=== PATIENT | male | born 1945 | race Caucasian/White ===

== ENCOUNTER 2020-03-19 10:56 | Outpatient (REF) | payer OTHER, SELFPAY ==
[2020-03-19 14:47] LABS: Prostate Specific Antigen 2.99 ng/mL (<0.05-4.0)
== END 2020-03-19 10:57 | disposition home or self-care (01) ==
LOC: HO.10HDL 10:56
PROVIDERS: Visit Provider Urology
DX: N40.1 Benign prostatic hyperplasia with lower urinary tract symptoms (principal)
CPT/HCPCS: 84153

== ENCOUNTER → 2020-04-10 14:58 | Outpatient (BNVA) | payer OTHER, SELFPAY | PROVIDERS: PCP Hospitalist; Referring Provider Hospitalist; Visit Provider Urology | DX: Z76.89 Persons encountering health services in other specified circumstances (principal) ==

== ENCOUNTER 2021-04-10 11:33 | Outpatient (REF) | payer OTHER, SELFPAY ==
[2021-04-10 14:43] LABS: PSA,Total (Free>4and<10) 2.36 ng/mL (0.00-4.00)
== END 2021-04-10 11:34 | disposition home or self-care (01) ==
LOC: HO.10HDL 11:33
PROVIDERS: Visit Provider Urology
DX: R97.20 Elevated prostate specific antigen [PSA] (principal); N40.1 Benign prostatic hyperplasia with lower urinary tract symptoms; N13.8 Other obstructive and reflux uropathy; Z12.5 Encounter for screening for malignant neoplasm of prostate
CPT/HCPCS: 36415; 84153; 87086

== ENCOUNTER → 2021-04-14 13:48 | Outpatient (BNVA) | payer OTHER, SELFPAY | PROVIDERS: PCP Hospitalist; Visit Provider Urology ==

== ENCOUNTER 2022-04-07 09:41 | Outpatient (REF) | payer OTHER, SELFPAY ==
[2022-04-07 11:26] LABS: Prostate Specific Antigen 3.99 ng/mL (<0.05-4.0)
== END 2022-04-07 09:42 | disposition home or self-care (01) ==
LOC: HO.10HDL 09:41
PROVIDERS: Visit Provider Urology
DX: Z12.5 Encounter for screening for malignant neoplasm of prostate (principal); N40.1 Benign prostatic hyperplasia with lower urinary tract symptoms; N13.8 Other obstructive and reflux uropathy
CPT/HCPCS: 36415; 84153

== ENCOUNTER → 2022-04-14 13:17 | Outpatient (BNVA) | payer OTHER, SELFPAY | PROVIDERS: PCP Hospitalist; Visit Provider Urology | DX: N40.1 Benign prostatic hyperplasia with lower urinary tract symptoms (principal); R97.20 Elevated prostate specific antigen [PSA] | CPT/HCPCS: 51798 ==

== ENCOUNTER 2022-09-30 11:04 | Outpatient (REF) | payer OTHER, SELFPAY ==
[2022-09-30 14:15] LABS: PSA,Total (Free>4and<10) 1.43 ng/mL (0.00-4.00)
== END 2022-09-30 11:05 | disposition home or self-care (01) ==
LOC: HO.10HDL 11:04
PROVIDERS: Visit Provider Urology
DX: Z12.5 Encounter for screening for malignant neoplasm of prostate (principal); R97.20 Elevated prostate specific antigen [PSA]
CPT/HCPCS: 36415; 84153

== ENCOUNTER → 2022-10-12 10:20 | Outpatient (BNVA) | payer OTHER, SELFPAY | PROVIDERS: PCP Hospitalist; Visit Provider Urology ==

== ENCOUNTER 2023-10-18 10:07 | Outpatient (REF) | payer OTHER, SELFPAY | END 2023-10-18 10:08 | disposition home or self-care (01) | LOC: HO.10HDL 10:07 | PROVIDERS: Visit Provider Urology | DX: R97.20 Elevated prostate specific antigen [PSA] (principal); Z12.5 Encounter for screening for malignant neoplasm of prostate | CPT/HCPCS: 36415; 51798; 81003; 84153 ==

== ENCOUNTER 2023-10-18 10:15 | Outpatient (AMB) | payer OTHER, SELFPAY ==
--- NOTE | 2023-10-18 10:40 | A.OFFVIS_ITS ---
Intake Visit Reasons: Urinary tract infection Intake Note: Patient is Present for Follow Up Urology Medication: Finasteride Antibiotic Allergies: Penicillin Blood Thinners: None Last PVR 2021- 174 Todays PVR: 33 Patient has been experiencing UTI symptoms since TuesdayOctober 13 Allergies Penicillins [PENICILLINS] Allergy (Intermediate, Verified 10/18/23 10:41) ITCHY penicillin G Allergy (Unknown, Verified 10/18/23 10:41) Unknown FLURACINE DYE Allergy (Intermediate, Uncoded 10/18/23 10:41) HIVES,SWELLING Medication List - Last Reconciled 10/18/23 by Timothy Alvarez MD brimonidine 0.2% drps ophthalmic (eye) escitalopram oxalate 10 mg PO DAILY finasteride 5 mg PO DAILY 90 days furosemide 20 mg PO DAILY latanoprost 0.005% 1 drp ophthalmic (eye) BEDTIME HPI Comments Details: Frank is a pleasant male. He is a patient of Dr. Rausch. He is seen for the following urologic conditions - lower urinary tract symptoms UTI symptoms. PVR 35 UA shows 3+ leuks positive nitrites 3+ blood Treat for UTI Follow-up 6 months with PSA Lower urinary tract symptoms Here for review of lower urinary tract symptoms Currently with effective bladder emptying, has been happy with urinary stream - nocturia x2 Current BPH therapy finasteride Prior therapy - tamsulosin PSA 03/25 3.0 brother has prostate cancer was treated, 04/26 2.3, 04/27 4.0, 09/26 1.4 Therapeutic plan - finasteride trial 6 months Testicular/Scotal orchalgia-swelling: Hydrocelectomy August 2019 Well-[facility]aled [facility] Medical History BPH (benign prostatic hyperplasia) Epididymitis Other hydrocele Orchitis Chronic prostatitis Social History Advance Directives Date on File: 03/19/20 Review of Systems Const Denies chills and Denies fever(s) Card Reports no additional complaints and Denies syncope Resp Denies cough GI Denies abdominal pain and Denies heartburn Reports as per HPI and Denies change in libido Neuro Denies syncope Psych Denies change in libido Endo Denies change in libido Physical Exam Const General: cooperative, healthy appearing, comfortable and no acute distress Orientation/consciousness: patient oriented x3 HEENT Face and sinus: Yes normal facial exam Mouth: moist mucous membranes Neck Neck: Yes normal visual inspection, Yes full ROM and Yes trachea midline Chest Chest palpation & inspection: normal inspection of the chest Resp Effort & Inspection: normal respiratory effort, able to speak in complete sentences and no respiratory distress GI Inspection: Yes normal to inspection Back/Spine/Pelvis Cervical Spine: normal cervical lordosis Thoracic/Lumbar Spine: thoracic and lumbar spine normal to inspection Skin General skin exam: no rashes or lesions noted Neuro General: patient oriented x3, gait normal, tone normal and moves all extremities Extrem General: Yes normal to inspection and Yes capillary refill normal Office Procedures Post Void Residual Post Residual Void Post Void Residual (PVR): 33 [id number] Void Residual by ultrasound Results AMB Urinalysis, Automated UA Leukoctes 500 Nate/uL Last Edit by TRA Garvey on 10/18/23 10:50 UA Nitrite Positive Last Edit by Mary Vargas [facility] on 10/18/23 10:50 UA Urobilinogen 0.2 mg/dL Last Edit by Mary Vargas [facility] on 10/18/23 10:5 0 UA Protein 100 mg/dL Last Edit by Mary Vargas [facility] on 10/18/23 10:50 UA pH 6.0 Last Edit by Mary Vargas [facility] on 10/18/23 10:50 UA Blood 200 Pradip/uL Last Edit by Mary Vargas [facility] on 10/18/23 10:50 UA Specific [place] 1.015 Last Edit by TRA Garvey on 10/18/23 10: 50 UA Ketone Negative Last Edit by Mary Vargas [facility] on 10/18/23 10:50 UA Bilirubin 0 mg/dL Last Edit by Mary Vargas [facility] on 10/18/23 10:50 UA Glucose 0 mg/dL Last Edit by Mary Vargas [facility] on 10/18/23 10:50 Results Reviewed Results Reviewed: Laboratory Last Values Urine pH (Auto) 6.0 10/18/23 10:40 Specific [place] (Auto) 1.015 10/18/23 10:40 Urine Protein (Auto) 100 mg/dL 10/18/23 10:40 Glucose (UA)(Auto) 0 mg/dL 10/18/23 10:40 Urine Ketones (Auto) Negative 10/18/23 10:40 Urine Blood (Auto) 200 Pradip/uL 10/18/23 10:40 Urine Nitrite (Auto) Positive 10/18/23 10:40 Urine Bilirubin (Auto) 0 mg/dL 10/18/23 10:40 Urine Urobilinogen (Auto) 0.2 mg/dL 10/18/23 10:40 Leukocyte Esterase (Auto) 500 Nate/uL 10/18/23 10:40 Assessment & Plan Assessment & Plan (1) Elevated PSA: Code(s): R97.20 - Elevated prostate specific antigen [PSA] Category: Medical (2) UTI (urinary tract infection), bacterial: Code(s): N39.0 - Urinary tract infection, site not specified; A49.9 - Bacterial infection, unspecified Category: Medical Plan Treat UTI Six-month follow-up PSA Orders: Orders AMB Urinalysis Automated Today Z13.9 - Encounter for screening, unspecified Urine Culture Today N39.0 - Urinary tract infection, site not specified AMB Post Void Residual by ultrasound Today N40.1 - Benign prostatic hyperplasia with lower urinary tract symptoms PSA,Total (Free>4and<10) 6 Months R97.20 - Elevated prostate specific antigen [PSA] Patient Instructions: Imaging studies, laboratory and physical exam results were discussed and reviewed in detail. No major barriers to patient understanding were identified. An opportunity to ask questions regarding the treatment plan was provided. All questions were answered. The patient expressed understanding and agreement with the above treatment plan. The patient is aware they should contact our office by phone for worsening of their current condition or the appearance of new urologic symptoms. Compliance is encouraged with any medications and followup testing that is ordered. It is a privilege to participate in the urologic care of your patient. If you have any questions or concerns regarding treatment for the above conditions, or other urologic issues, please do not hesitate to contact me. The office telephone contact is [phone]. This note is constructed using voice recognition software. While every effort has been made to ensure accuracy head of research & insights errors may have been included. Yours sincerely, Dr Timothy Alvarez MD, [facility] - Urology Providers of Expert, Compassionate Care for the Genitourinary System Coding Level of Care Code Est Pt Level 4 (42196) Diagnoses Elevated PSA R97.20 UTI (urinary tract infection), bacterial N39.0; A49.9 CPT Codes Post Residual Void - PVR CPT Code: 53836-[id number] Void Residual by ultrasound ([id number])
== END 2023-10-18 11:57 | disposition home or self-care (01) ==
PROVIDERS: PCP Hospitalist; Visit Provider Urology
DX: R97.20 Elevated prostate specific antigen [PSA] (principal); N39.0 Urinary tract infection, site not specified; A49.9 Bacterial infection, unspecified; Z13.9 Encounter for screening, unspecified
CPT/HCPCS: 99214

== ENCOUNTER 2023-10-18 10:48 | Outpatient (REF) | payer OTHER, SELFPAY | END 2023-10-18 10:49 | disposition home or self-care (01) | LOC: HO.LAB 10:48 | PROVIDERS: Visit Provider Urology | DX: N39.0 Urinary tract infection, site not specified (principal) | CPT/HCPCS: 87086; 87088; 87186 ==

== ENCOUNTER → 2023-10-21 15:40 | Outpatient (BNVA) | payer OTHER, SELFPAY | PROVIDERS: PCP Hospitalist; Visit Provider Urology ==

== ENCOUNTER 2023-10-21 16:19 | Outpatient (AMB) | payer OTHER, SELFPAY ==
--- NOTE | 2023-10-21 16:23 | A.OFFVIS_ITS ---
Intake Visit Reasons: Cath Change Allergies Penicillins [PENICILLINS] Allergy (Intermediate, Verified 11/10/23 11:45) ITCHY penicillin G Allergy (Unknown, Verified 11/10/23 11:45) Unknown FLURACINE DYE Allergy (Intermediate, Uncoded 11/10/23 11:45) HIVES,SWELLING Medication List - Last Reconciled 10/21/23 by Timothy Alvarez MD brimonidine 0.2% drps ophthalmic (eye) escitalopram oxalate 10 mg PO DAILY finasteride 5 mg PO DAILY 90 days furosemide 20 mg PO DAILY latanoprost 0.005% 1 drp ophthalmic (eye) BEDTIME levofloxacin 250 mg PO daily 5 days sulfamethoxazole-trimethoprim 800-160 mg (Bactrim DS) 1 tab PO BID 5 days tranexamic acid 650 mg PO BID 5 days HPI Comments Details: Frank is a pleasant male. He is a patient of Dr. Rausch. He is seen for the following urologic conditions - lower urinary tract symptoms Here for catheter change Has had colonization Persistent UTI with hematuria Will try tranexamic acid to help with hematuria Lower urinary tract symptoms Here for review of lower urinary tract symptoms Currently with effective bladder emptying, has been happy with urinary stream - nocturia x2 Current BPH therapy finasteride Prior therapy - tamsulosin PSA 03/25 3.0 brother has prostate cancer was treated, 04/26 2.3, 04/27 4.0, 09/26 1.4 Therapeutic plan - finasteride trial 6 months Testicular/Scotal orchalgia-swelling: Hydrocelectomy August 2019 Well-[facility]aled [facility] Medical History BPH (benign prostatic hyperplasia) Epididymitis Other hydrocele Orchitis Chronic prostatitis Social History Advance Directives Date on File: 03/19/20 Review of Systems Const Denies chills and Denies fever(s) Card Reports no additional complaints and Denies syncope Resp Denies cough GI Denies abdominal pain and Denies heartburn Reports as per HPI and Denies change in libido Neuro Denies syncope Psych Denies change in libido Endo Denies change in libido Physical Exam Const General: cooperative, healthy appearing, comfortable and no acute distress Orientation/consciousness: patient oriented x3 HEENT Face and sinus: Yes normal facial exam Mouth: moist mucous membranes Neck Neck: Yes normal visual inspection, Yes full ROM and Yes trachea midline Chest Chest palpation & inspection: normal inspection of the chest Resp Effort & Inspection: normal respiratory effort, able to speak in complete sentences and no respiratory distress GI Inspection: Yes normal to inspection Back/Spine/Pelvis Cervical Spine: normal cervical lordosis Thoracic/Lumbar Spine: thoracic and lumbar spine normal to inspection Skin General skin exam: no rashes or lesions noted Neuro General: patient oriented x3, gait normal, tone normal and moves all extremities Extrem General: Yes normal to inspection and Yes capillary refill normal Assessment & Plan Assessment & Plan (1) Gross hematuria: Code(s): R31.0 - Gross hematuria Category: Medical Plan Trial tranexamic acid with Bactrim Orders: Orders US renal BI 10/21/23 N20.0 - Calculus of kidney, R31.0 - Gross hematuria Medications: New tranexamic acid 650 mg PO BID 10 tabs 0RF 5 days R31.0 - Gross hematuria, N30.01 - Acute cystitis with hematuria sulfamethoxazole-trimethoprim 800-160 mg (Bactrim DS) 1 tab PO BID 10 tabs 0RF 5 days N39.0 - Urinary tract infection, site not specified, A49.9 - Bacterial infection, unspecified Patient Instructions: Imaging studies, laboratory and physical exam results were discussed and reviewed in detail. No major barriers to patient understanding were identified. An opportunity to ask questions regarding the treatment plan was provided. All questions were answered. The patient expressed understanding and agreement with the above treatment plan. The patient is aware they should contact our office by phone for worsening of their current condition or the appearance of new urologic symptoms. Compliance is encouraged with any medications and followup testing that is ordered. It is a privilege to participate in the urologic care of your patient. If you have any questions or concerns regarding treatment for the above conditions, or other urologic issues, please do not hesitate to contact me. The office telephone contact is [phone]. This note is constructed using voice recognition software. While every effort has been made to ensure accuracy shoe fitter errors may have been included. Yours sincerely, Dr Timothy Alvarez MD, [facility] - Urology Providers of Expert, Compassionate Care for the Genitourinary System Coding Level of Care Code Est Pt Level 3 (36346) Diagnoses Gross hematuria R31.0
== END 2023-10-21 16:30 | disposition home or self-care (01) ==
LOC: HO.HUSH 16:19
PROVIDERS: PCP Hospitalist; Visit Provider Urology
DX: R31.0 Gross hematuria (principal)
CPT/HCPCS: 99213

== ENCOUNTER 2023-11-04 11:03 | Outpatient (REF) | payer OTHER, SELFPAY ==
--- NOTE | ~2023-11-04 | US_ITS ---
EXAMINATION: US RETROPERITONEAL LIMITED (RENAL ONLY) CLINICAL INFORMATION: Nephrolithiasis. COMPARISON: None available. TECHNIQUE: Real-time imaging of the kidneys. FINDINGS: RIGHT KIDNEY: 10.4 x 5.2 x 4.3 cm (SAG x AP x TRV). The kidney is normal in size, contour, and echogenicity. Renal cortical thickness is normal. No calculi. Hydronephrosis versus parapelvic cysts. LEFT KIDNEY: 10.2 x 5.4 x 4.4 cm (SAG x AP x TRV). The kidney is normal in size, contour, and echogenicity. Renal cortical thickness is normal. No calculi. Upper pole cyst measures 6.1 x 5.4 x 5.5 cm. No further imaging follow-up is needed. Hydronephrosis versus parapelvic cysts. The urinary bladder is partially distended. Bilateral ureteral jets are not seen. There are questionable multiple small bladder diverticula. Marked enlargement of the prostate gland measuring 10.0 x 7.1 x 6.7 cm for a volume of 252 mL. US/US renal BI IMPRESSION: Mild bilateral hydronephrosis versus parapelvic cysts. Consider CT urogram. Marked enlargement of the prostate gland. Possible multiple small bladder diverticula.
== END 2023-11-04 11:04 | disposition home or self-care (01) ==
LOC: HO.US 11:03
PROVIDERS: PCP Hospitalist; Visit Provider Urology
DX: N20.0 Calculus of kidney (principal); R31.0 Gross hematuria
CPT/HCPCS: 76775

== ENCOUNTER 2023-11-10 11:09 | Outpatient (AMB) | payer OTHER, SELFPAY ==
--- NOTE | 2023-11-10 11:44 | A.OFFVIS_ITS ---
Intake Visit Reasons: US Follow Up Intake Note: Patient is Present for Follow Up US Urology Medication:Finasteride Antibiotic Allergies:Penicillins Blood Thinners: None Allergies Penicillins [PENICILLINS] Allergy (Intermediate, Verified 11/10/23 11:45) ITCHY penicillin G Allergy (Unknown, Verified 11/10/23 11:45) Unknown FLURACINE DYE Allergy (Intermediate, Uncoded 11/10/23 11:45) HIVES,SWELLING HPI Comments Details: Frank is a pleasant male. He is a patient of Dr. Rausch. He is seen for the following urologic conditions - lower urinary tract symptoms - recurrent UTI - erectile dysfunction Urinary tract infection cleared Ultrasound with parapelvic cysts Markedly enlarged prostate - multiple small bladder diverticula. Marked enlargement of the prostate gland measuring 10.0 x 7.1 x 6.7 cm for a volume of 252 mL Discussed GreenLight laser procedure - pertinent information provided Restart finasteride Plan procedure for 6-8 weeks Secondary issue erectile dysfunction. Trial oral medications Urinary tract infection 08/24/2023 Proteus Macrobid resistant, treated with Levaquin Lower urinary tract symptoms Here for review of lower urinary tract symptoms Currently with effective bladder emptying, has been happy with urinary stream - nocturia x2 Current BPH therapy finasteride Prior therapy - tamsulosin PSA 03/25 3.0 brother has prostate cancer was treated, 04/26 2.3, 04/27 4.0, 09/26 1.4 Testicular/Scotal orchalgia-swelling: Hydrocelectomy August 2019 [facility] Medical History BPH (benign prostatic hyperplasia) Epididymitis Other hydrocele Orchitis Chronic prostatitis Social History Advance Directives Date on File: 03/19/20 Review of Systems Const Denies chills and Denies fever(s) Card Reports no additional complaints and Denies syncope Resp Denies cough GI Denies abdominal pain and Denies heartburn Reports as per HPI and Denies change in libido Neuro Denies syncope Psych Denies change in libido Endo Denies change in libido Physical Exam Const General: cooperative, healthy appearing, comfortable and no acute distress Orientation/consciousness: patient oriented x3 HEENT Face and sinus: Yes normal facial exam Mouth: moist mucous membranes Neck Neck: Yes normal visual inspection, Yes full ROM and Yes trachea midline Chest Chest palpation & inspection: normal inspection of the chest Resp Effort & Inspection: normal respiratory effort, able to speak in complete sentences and no respiratory distress GI Inspection: Yes normal to inspection Back/Spine/Pelvis Cervical Spine: normal cervical lordosis Thoracic/Lumbar Spine: thoracic and lumbar spine normal to inspection Skin General skin exam: no rashes or lesions noted Neuro General: patient oriented x3, gait normal, tone normal and moves all extremities Extrem General: Yes normal to inspection and Yes capillary refill normal Results AMB Urinalysis, Automated UA Leukoctes 0 Nate/uL Last Edit by TRA Garvey on 11/10/23 11:49 UA Nitrite Negative Last Edit by TRA Garvey on 11/10/23 11:49 UA Urobilinogen 0.2 mg/dL Last Edit by Mary Vargas A on 11/10/23 11:4 9 UA Protein 30 mg/dL Last Edit by Mary Vargas [facility] on 11/10/23 11:49 UA pH 5.0 Last Edit by Mary Vargas [facility] on 11/10/23 11:49 UA Blood 200 Pradip/uL Last Edit by Mary Vargas [facility] on 11/10/23 11:49 UA Specific [place] 1.020 Last Edit by Mary Vargas [facility] on 11/10/23 11: 49 UA Ketone Negative Last Edit by TRA Garvey on 11/10/23 11:49 UA Bilirubin 0 mg/dL Last Edit by Mary Vargas [facility] on 11/10/23 11:49 UA Glucose 0 mg/dL Last Edit by Mary Vargas [facility] on 11/10/23 11:49 Results Reviewed Results Reviewed: Laboratory Last Values Urine pH (Auto) 5.0 11/10/23 11:45 Specific [place] (Auto) 1.020 11/10/23 11:45 Urine Protein (Auto) 30 mg/dL 11/10/23 11:45 Glucose (UA)(Auto) 0 mg/dL 11/10/23 11:45 Urine Ketones (Auto) Negative 11/10/23 11:45 Urine Blood (Auto) 200 Pradip/uL 11/10/23 11:45 Urine Nitrite (Auto) Negative 11/10/23 11:45 Urine Bilirubin (Auto) 0 mg/dL 11/10/23 11:45 Urine Urobilinogen (Auto) 0.2 mg/dL 11/10/23 11:45 Leukocyte Esterase (Auto) 0 Nate/uL 11/10/23 11:45 Assessment & Plan Assessment & Plan (1) Erectile dysfunction: Code(s): N52.9 - Male erectile dysfunction, unspecified Category: Medical (2) UTI (urinary tract infection), bacterial: Code(s): N39.0 - Urinary tract infection, site not specified; A49.9 - Bacterial infection, unspecified Category: Medical (3) BPH loc w urin obs/LUTS: Code(s): N40.1 - Benign prostatic hyperplasia with lower urinary tract symptoms Category: Medical Plan We discussed the nature of the decision and reasonable options for performing a prostate intervention. Interventions include TURP, GreenLight laser enucleation of the prostate, GreenLight laser ablation of the prostate, transurethral incision of the prostate, and I-Tend prostate procedure. Options such as medical therapy were discussed. The relative uncertainties and benefits related to each alternate procedure were adequately discussed. General surgical risks including, but not limited to, pain, bleeding, infection, myocardial infarction, pulmonary embolus, deep vein thrombosis and cerebrovascular accident which may result in further hospitalization were discussed. Full disclosure of the procedure as well as all major risks, benefits and complications were discussed including but not limited to damage to the urethra or bladder neck, recurrent BPH, retrograde ejaculation, bladder infection, urge, de lyssa frequency, incomplete emptying, dysuria, remote chance of erectile dysfunction, epididymitis, and meatal stenosis. The success rate of the procedure was discussed. Success of the procedure in the short-term does not necessarily guarantee that long-term success will be maintained. Suitable follow up will need to be maintained. The patient showed understanding of discussion. An opportunity was provided for questions to be answered and wishes to proceed with the following procedure. - GreenLight laser 90 minutes 240 cc gland Orders: Orders AMB Urinalysis Automated Today Z13.9 - Encounter for screening, unspecified Medications: New tadalafil [id number] [facility] [id number] Member [id number] 20 mg PO ONCE 30 days PRN 30 tabs 0RF sexual activity N52.9 - Male erectile dysfunction, unspecified Refilled finasteride 5 mg PO DAILY 90 days 90 tabs 1RF N13.8 - Other obstructive and reflux uropathy, N40.1 - Benign prostatic hyperplasia with lower urinary tract symptoms, R33.9 - Retention of urine, unspecified, R97.20 - Elevated prostate specific antigen [PSA] Patient Instructions: Imaging studies, laboratory and physical exam results were discussed and reviewed in detail. No major barriers to patient understanding were identified. An opportunity to ask questions regarding the treatment plan was provided. All questions were answered. The patient expressed understanding and agreement with the above treatment plan. The patient is aware they should contact our office by phone for worsening of their current condition or the appearance of new urologic symptoms. Compliance is encouraged with any medications and followup testing that is ordered. It is a privilege to participate in the urologic care of your patient. If you have any questions or concerns regarding treatment for the above conditions, or other urologic issues, please do not hesitate to contact me. The office telephone contact is [phone]. This note is constructed using voice recognition software. While every effort has been made to ensure accuracy scalehouse attendant errors may have been included. Yours sincerely, Dr Timothy Alvarez MD, [facility] - Urology Providers of Expert, Compassionate Care for the Genitourinary System Coding Level of Care Code Est Pt Level 4 (39751) Diagnoses Erectile dysfunction N52.9 UTI (urinary tract infection), bacterial N39.0; A49.9 BPH loc w urin obs/LUTS N40.1
== END 2023-11-10 12:25 | disposition home or self-care (01) ==
PROVIDERS: PCP Hospitalist; Visit Provider Urology
DX: N52.9 Male erectile dysfunction, unspecified (principal); N39.0 Urinary tract infection, site not specified; A49.9 Bacterial infection, unspecified; N40.1 Benign prostatic hyperplasia with lower urinary tract symptoms; Z13.9 Encounter for screening, unspecified
CPT/HCPCS: 99214

== ENCOUNTER → 2023-11-10 11:09 | Outpatient (BNVA) | payer OTHER, SELFPAY | PROVIDERS: PCP Hospitalist; Visit Provider Urology | DX: N40.1 Benign prostatic hyperplasia with lower urinary tract symptoms (principal); R35.1 Nocturia; N52.9 Male erectile dysfunction, unspecified; N39.0 Urinary tract infection, site not specified; N13.8 Other obstructive and reflux uropathy; R33.8 Other retention of urine; A49.9 Bacterial infection, unspecified | CPT/HCPCS: 81003 ==

== ENCOUNTER 2024-01-02 05:45 | Day surgery (SDC) | payer OTHER, SELFPAY ==
--- NOTE | 2023-12-30 12:10 | HO.ANESPROP2 ---
Documented by User: Flores Buchanan NP 12/30/23 12:11 HPI - Anesthesia Eval Consult details Narrative: 78yo M for Laser Ablation Prostate w/Green Light PMFSH Active Problems Active Problems: All Active Problems Erectile dysfunction (Acute) Gross hematuria (Acute) UTI (urinary tract infection), bacterial (Acute) Elevated PSA (Acute) BPH loc w urin obs/LUTS (Acute) Past Medical History Medical History (Updated 11/10/23 @ 12:13 by Timothy Alvarez MD) BPH (benign prostatic hyperplasia) Epididymitis Other hydrocele Orchitis Chronic prostatitis Surgical History Surgical History (Updated 01/02/24 @ 06:17 by Micki Kahn RN) History of kidney surgery H/O eye surgery H/O cataract extraction History of testicular surgery Social History Social History Patient Tobacco Use Status: Never used Tobacco Use of substances other than those prescribed or required for medical reasons: No Are you DNR?: No Advance Directives: No Advance Directives Information Provided: Yes Advance Directives Date on File: 03/19/20 Meds Allergies Allergy/AdvReac Type Severity Reaction Status Date / Time penicillin G Allergy Intermediate Itching Verified 01/02/24 06:10 Penicillins [PENICILLINS] Allergy Intermediate Itching Verified 01/02/24 06:10 FLURACINE DYE Allergy Intermediate HIVES,SWELL Uncoded 01/02/24 06:10 ING Home Medications ?Medication ?Instructions ?Recorded ?Confirmed ?Last Taken ?Type brimonidine 0.2 % eye drops 1 drp ophthalmic (eye) DAILY 04/10/20 01/02/24 Unknown History escitalopram oxalate 10 mg tablet 10 mg PO DAILY 04/14/21 01/02/24 Unknown History latanoprost 0.005 % eye drops 1 drp ophthalmic (eye) BEDTIME 04/12/22 01/02/24 Unknown History Assessment and Plan Assessment Anesthesia Assessment: Chart Reviewed Documented by User: Rory Pedraza MD 01/02/24 07:27 [facility] Past Medical History Medical History (Updated 11/10/23 @ 12:13 by Timothy Alvarez MD) BPH (benign prostatic hyperplasia) Epididymitis Other hydrocele Orchitis Chronic prostatitis Family History Family history of problems with anesthesia: No Surgical History Surgical History (Updated 01/02/24 @ 06:17 by Micki Kahn RN) History of kidney surgery H/O eye surgery H/O cataract extraction History of testicular surgery History of Problems with Anesthesia: No Social History Social History Patient Tobacco Use Status: Never used Tobacco Use of substances other than those prescribed or required for medical reasons: No Are you DNR?: No Advance Directives: No Advance Directives Information Provided: Yes Advance Directives Date on File: 03/19/20 Meds Allergies Allergy/AdvReac Type Severity Reaction Status Date / Time penicillin G Allergy Intermediate Itching Verified 01/02/24 06:10 Penicillins [PENICILLINS] Allergy Intermediate Itching Verified 01/02/24 06:10 FLURACINE DYE Allergy Intermediate HIVES,SWELL Uncoded 01/02/24 06:10 ING Home Medications ?Medication ?Instructions ?Recorded ?Confirmed ?Last Taken ?Type brimonidine 0.2 % eye drops 1 drp ophthalmic (eye) DAILY 04/10/20 01/02/24 Unknown History escitalopram oxalate 10 mg tablet 10 mg PO DAILY 04/14/21 01/02/24 Unknown History latanoprost 0.005 % eye drops 1 drp ophthalmic (eye) BEDTIME 04/12/22 01/02/24 Unknown History Exam Airway Mallampati Class: I TM Dist: >3cm Neck ROM: Full Loose/Missing/Broken Teeth: Yes, Upper and Lower Heart: ok Lungs: ok Assessment and Plan Assessment Anesthesia Assessment: Anesthesia Plan Discussed Final Anesthetic Review Family History of Problems with Anesthesia: No History of Problems with Anesthesia: No NPO: Yes ASA Class: III Final Preanesthetic Review: No Changes in Pt Med Stat, Meds/Allgs Chart Reviewed, Consent Obtained/Reviewed and Anes Risks/Benef Reviewed Patient Risk: Intermediate Procedure Risk: Low Anesthetic Plan Anesthetic Plan: GA and Agree w/ Assess. and Plan Disposition: Standard PACU
[2024-01-02] VITALS (13 sets, daily range): BP systolic 78–141; BP diastolic 41–70; PULSE 51–70; RESP 16; TEMP 36.3–36.6; O2SAT 96–100; BMI 35.0
--- OUTSIDE RECORDS SUMMARY | 2024-01-02 05:47 | XMS_ITS ---
Author Organization [facility] Address [address] [facility] [address] [place] [address] Care Team Providers Care Director Of Parks And Recreation Name Role Phone SERJIO TAPIA Primary Care Provider [phone] REASON FOR VISIT refill of escitalopram MEDICATIONS Medication SIG (Take, Route, Frequency, Duration) Notes Start Date End Date Status Escitalopram Oxalate 20 MG TAKE 1 TABLET BY MOUTH EVERY DAY for 90 days Active Encounters Encounter Location Date Provider Diagnosis [facility] [address] [facility] [address] [place] [address] 07/18/2023 SERJIO TAPIA PLAN OF TREATMENT Medication Medication Name Sig Start Date Stop Date Notes Escitalopram Oxalate 20 MG TAKE 1 TABLET BY MOUTH EVERY DAY for 90 days Progress Notes * Manda HILL:1945 ([age] yo M)Acc No.[id number]:07/18/2023 Patient:??Frank HILL :1945?Age:78 Y?Sex:Lourdes baltazar Address:[address], [address], [place] [address] * Refills?? Refill Escitalopram Oxalate Tablet, 20 MG, 90 Tablet, TAKE 1 TABLET BY MOUTH EVERY DAY, 90 days, Refills=3 * true * Date:??
--- OUTSIDE RECORDS SUMMARY | 2024-01-02 05:48 | XMS_ITS ---
Author Organization [facility] Address [address] [facility] [address] [place] [address] Care Team Providers Care Summer School Coordinator Name Role Phone SERJIO TAPIA Primary Care Provider REASON FOR VISIT 2 month fu Encounters Encounter Location Date Provider Diagnosis [facility] 294 [facility] [address] [place] [address] 03/22/2023 SERJIO TAPIA PLAN OF TREATMENT No Information Progress Notes * LIZ FrankDOB:1945 ([age] yo M)Acc No.[id number]:03/22/2023 Progress Notes Patient:??Frank HILL Provider:??SERJIO TAPIA MD :1945?Age:78 Y?Sex:Ma le Date:03/22/2023 Address:[address], [facility] Subjective: * Chief Complaints: * ?1. 2 month fu. * Medical History:?? Objective: Assessment: Plan: * Treatment: * Images: * Sign off status: Pending * Provider:??SERJIO TAPIA MD Date:??
--- OUTSIDE RECORDS SUMMARY | 2024-01-02 05:48 | XMS_ITS ---
Author Organization [facility] Address [address] [facility] [address] [place] [address] Care Team Providers Care Communications Coordinator Name Role Phone SERJIO TAPIA Primary Care Provider [phone] REASON FOR VISIT refill escitalopram MEDICATIONS Medication SIG (Take, Route, Frequency, Duration) Notes Start Date End Date Status Escitalopram Oxalate 20 MG 1 tab once da brock Orally Once a day for 30 days Active Encounters Encounter Location Date Provider Diagnosis [facility] [address] [facility] [address] [place] [address] 07/15/2023 SERJIO TAPIA PLAN OF TREATMENT Medication Medication Name Sig Start Date Stop Date Notes Escitalopram Oxalate 20 MG 1 tab once da brock Orally Once a day for 30 days Progress Notes * Frank HILLDOB:1945 ([age] yo M)Acc No.[id number]:07/15/2023 Patient:??Frank HILL :1945?Age:78 Y?Sex:Lourdes ledesma Address:[address], [address], [place] [address] * Refills?? Refill Escitalopram Oxalate Tablet, 20 MG, Orally, 30 Tablet, 1 tab once daily, Once a day, 30 days, Refills=5 * true * Date:??
[2024-01-02] MEDS: Lactated Ringers 1,000 ML 100 ML IVCONT (06:29)
--- NOTE | 2024-01-02 07:30 | PC.NURSE ---
Patient in preop. environmental monitoring technician showing SR with first degree heart block. No EKG on file for comparison. Dr. Yepez and Dr. Pedraza made aware. At bedside. No new orders at this time. Okay to proceed with surgery.
--- NOTE | 2024-01-02 07:41 | MHC.SHP ---
Pre-Procedural Eval Section A - 24 Hr Update-Section A only Date of Service: 01/02/24 The patient is an INPATIENT: No Changes since office visit: No Cold of Flu in the past 2 weeks, No New Medical Problems, No Changes in Medication and No Patient answered all questions The patient has been examined within 24 hours of the surgical procedure. The History & Physical has been completed within 30 days and I have reviewed it.: Yes Section B - Complete if H&P > 30 days Chief Complaint: Benign prostatic hyperplasia with lower urinary tr Details of Present Illness: large prostate Relevant Family History (Specify if Yes): No Relevant Social History: None Present Medications: see Short Stay Collaborative assessment Medical History: No relevant PMH History of Previous Operations: No relevant previous surgery Allergies: Allergies Allergy/AdvReac Type Severity Reaction Status Date / Time penicillin G Allergy Intermediate Itching Verified 01/02/24 06:10 Penicillins [PENICILLINS] Allergy Intermediate Itching Verified 01/02/24 06:10 FLURACINE DYE Allergy Intermediate HIVES,SWELL Uncoded 01/02/24 06:10 ING Review of Systems Sugical H&P ROS: Negative: Constitution, Cardiovascular, Respiratory, Neurological, Psychiatric, Hem-Onc, Allergic/Immunologic, Gastrointestinal, Genitourinary, Musculoskeletal, Integumentary, Endocrine and Eyes/Ears/Nose/Throat Exam Surgical H&P Exam: Normal: HEENT, Normal: Heart, Normal: Lungs, Normal: Extremities, Normal: Abdomen, Normal: Skin and Normal: Neurological Plan Diagnosis/Plan: Unchanged (laser prostatetcomy) I have reviewed the history and physical and performed a pertinent physical examination on my patient. No changes have occurred unless specified. Time Spent With Patient Time: Total time managing care of this patient today ____ minutes.
--- NOTE | 2024-01-02 09:16 | P.OP_ITS ---
Operative Note Operative Note Date of Service: 01/02/24 Narrative: PreOperative Diagnosis: Bladder outlet obstruction Post Operative Diagnosis: Bladder outlet obstruction Procedure: GreenLight Laser Enucleation of the prostate CPT 79112 Surgeon: Dr Timothy Alvarez Anesthesia: General History of bladder outlet obstruction. Treated with alpha-roshan and other medications. Still with symptoms. On cystoscopy in office has extremely large median lobe - 80 g on ultrasound Recommendation for prostate procedure with laser enucleation of prostate. Risks and benefits have been discussed. Focus was placed on development of retrograde ejaculation which is a normal part of this procedure. Procedure: After informed consent was verified the patient was brought to the operating room and placed in a supine position. Anesthesia was administered per protocol. Patient was placed in modified dorsal lithotomy position and prepped and draped in a sterile fashion. Safety pause time-out was confirmed. Antibiotics have been given. A Twenty-four Finnish laser cystoscope was inserted per urethra. No abnormalit ies were found of the anterior and bulbar urethra. The prostatic urethra shows primarily median lobe hypertrophy The bladder was examined and both ureteric orifices were seen in their normal positions away from the area of interest. Bladder trabeculation grade 2/3 with multiple cellules. J hooking apparent on right ureteric orifice. Left ureteric orifice seen close to end point of median lobe extension.. Using a GreenLight laser with settings of 80 santacruz incisions were made at the 5 and 7 o'clock position. The incisions were taken down from the bladder neck down to the level of the veru. These were gradually deepened in order to define the lateral aspects of the median lobe area. Once clearly defined they will also extended in the lateral directions in order to create a deep groove. The median lobe was extremely large. Once the lateral borders had been defined a midline incision was made through the median lobe. This was not taken all the way to the floor of the prostate but was extended down towards the veru. The isolated left side of the median lobe was then divided in half again. Once the median lobe had been divided into quarters on the left side using a shave te chnique tissue was ablated and enucleated in multiple layers. The strategy allowed us to remain away from the bladder and successfully remove tissue without needing morcellation. Power throughout was increased 1st yo 120 w and then to 140 w. Once the left portion of the lateral lobe been brought down to a relative level of similar procedure was repeated on the right side. At this point the median lobe had been reduced in size by proximally 2/3. The grooves on the lateral sides were then redeveloped isolating further median lobe tissue. The prior strategy of dividing the median lobe longitudinally and then ablating/nucleating from each edge was repeated to bring down the median lobe tissue. Once complete was clear that the median lobe had been creating 95% of the obstruction. Was there was lateral lobe tissue decision has been made to leave this at this current point in time and follow patient's urinary performance. When this was had been completed debris and pieces of prostate were removed from the bladder with irrigation. Both ureteric orifices were reviewed again in shown to be patent in away from any areas of energy damage. The apical area was reviewed in any stray ooze was controlled. A 22 Finnish 30 cc balloon Palm catheter was placed over a stylet into the bladder. Clear efflux was obtained upon irrigation with a Miller piston syringe. Sixty cc was placed in the balloon and gentle traction was placed. A snap was used to hold tension on the catheter to control bleeding during patient moved and transported. A drainage bag was placed. Once transportation is complete to the PACU the snap will be removed. The patient tolerated the procedure well, he was extubated in the operating and transferred in a stable condition to the recovery area. Total Power 310 kW Lasing time 41:36 Pathology: Prostate tissue Drains: Palm catheter
== END 2024-01-02 12:24 | disposition home or self-care (01) ==
PROVIDERS: PCP Hospitalist; Visit Provider Urology
PROC: (CPT 52648; principal; 2024-01-02 07:30)
DX: N40.1 Benign prostatic hyperplasia with lower urinary tract symptoms (principal); N13.8 Other obstructive and reflux uropathy; N32.3 Diverticulum of bladder; R33.9 Retention of urine, unspecified; N45.2 Orchitis; N43.3 Hydrocele, unspecified; N41.9 Inflammatory disease of prostate, unspecified; N52.9 Male erectile dysfunction, unspecified; Z79.899 Other long term (current) drug therapy; Z88.0 Allergy status to penicillin; Z98.890 Other specified postprocedural states
CPT/HCPCS: 52649; 88305; J0360; J1956; J2704; J3010

== ENCOUNTER → 2024-01-02 05:45 | Outpatient (BNV) | payer OTHER, SELFPAY | PROVIDERS: PCP Hospitalist; Visit Provider Urology | DX: N32.0 Bladder-neck obstruction (principal) | CPT/HCPCS: 52649 ==

== ENCOUNTER → 2024-01-05 09:32 | Outpatient (BNVA) | payer OTHER, SELFPAY | PROVIDERS: PCP Hospitalist; Visit Provider Urology | DX: R31.0 Gross hematuria (principal); N40.0 Benign prostatic hyperplasia without lower urinary tract symptoms; R97.20 Elevated prostate specific antigen [PSA]; Z98.890 Other specified postprocedural states | CPT/HCPCS: 51700; 51798 ==

== ENCOUNTER 2024-05-22 11:38 | Outpatient (REF) | payer OTHER, SELFPAY ==
--- OUTSIDE RECORDS SUMMARY | 2024-05-22 11:49 | XMS_ITS ---
Author Organization [facility] Address [address] [address] Care Team Providers Care Lead Neurodiagnostic Technologist Name Role Phone SERJIO TAPIA Primary Care Provider REASON FOR VISIT 2 month fu Encounters Encounter Location Date Provider Diagnosis [facility] [address] [facility] [address] [place] [address] 03/22/2023 SERJIO TAPIA Plan Of Treatment No Information Progress Notes * RUSLANFrank KAURDOB:1945 ([age] yo M)Acc No.[id number]:03/22/2023 Progress Notes Patient:?Frank HILL Provider:?SERJIO TAPIA MD :1945???Age:78 Y???Sex:Male Jaime e:03/22/2023 Address:[address], [address], [place], [place] Subjective: * Chief Complaints: * ???1. 2 month fu. * Medical History:? Objective: * Vitals:? Assessment: Plan: * Treatment: * * Electronic signature of ANABEL TAPIA MD on 05/22/2024 at 11:49 AM EST Sign off status: Pending * Provider:?SERJIO TAPIA MD Date:?03/22 Generated for Bronson morales/Kurt/eTransmitting on:?05/22/2024 11:49 AM EST
--- OUTSIDE RECORDS SUMMARY | 2024-05-22 11:49 | XMS_ITS ---
Author Organization [facility] Address [address] [facility] [address] [place] [address] Care Team Providers Care Motor Vehicle Representative Name Role Phone SERJIO TAPIA Primary Care Provider REASON FOR VISIT refill of escitalopram Medications Medication SIG (Take, Route, Frequency, Duration) Notes Start Date End Date Status Escitalopram Oxalate 20 MG TAKE 1 TABLET BY MOUTH EVERY DAY for 90 days Active Encounters Encounter Location Date Provider Diagnosis [facility] [address] [facility] [address] [place] [address] 07/18/2023 SERJIO TAPIA Plan Of Treatment Medication Medication Name Sig Start Date Stop Date Notes Escitalopram Oxalate 20 MG TAKE 1 TABLET BY MOUTH EVERY DAY for 90 days Progress Notes * Manda HILL:1945 ([age] yo M)Acc No.[id number]:07/18/2023 Patient:?RUSLANFrank KAUR :1945???Age:78 Y???Sex:Male Address:[address], [address], [place] [address] * Refills? Refill Escitalopram Oxalate Tablet, 20 MG, 90 Tablet, TAKE 1 TABLET BY MOUTH EVERY DAY, 90 days, Refills=3 * true * Date:? Generated for Bronson morales/Kurt/eTolegariosmitting on:?05/22/2024 11:48 AM EST
--- OUTSIDE RECORDS SUMMARY | 2024-05-22 11:49 | XMS_ITS | Patient Health Record ---
Author Organization [facility] Address [address] [facility] [address] [place] [address] Care Team Providers Care Shredded Filler Hopper Feeder Name Role Phone SERJIO TAPIA Primary Care Provider Allergies Allergen (clinical drug ingredient) Drug/Non Drug Allergy documented on EMR Reaction Allergy Type Onset Date Status Fleurescene Dye (uncoded) Unknown Allergy Active penicillamine Penicillamine Unknown Drug Allergy Active Reason For Referral No Information Medications Medication SIG (Take, Route, Frequency, Duration) Notes Start Date End Date Status Clotrimazole-Betame thasone 1-0.05 % 1 application Externally Twice a day as needed Active T-4 Gel Shampoo daily as directed Active Shingrix 50 MCG/0.5ML as directed Intramuscular 1 for 395 days 12/26/2020 Not-Taking Naproxen 250 MG 1 tablet with food or milk Orally every 12 hrs as needed for 30 Active Pneumovax 23 25 MCG/0.5ML as directed Injection 1 for 365 days 12/26/2020 Not-Taking Brimonidine Tartrate 0.2 % 1 drop into affected eye Ophthalmic twice a day Active Escitalopram Oxalate 20 MG TAKE 1 TABLET BY MOUTH EVERY DAY for 90 days Active Latanoprost 0.005 % 1 drop into affected eye in the evening Ophthalmic Once a day Active Rolaids 550-110 MG 2 tablets as needed Orally every 4 hrs Active Omeprazole 20 MG 1 capsule Orally Once a day as needed Not-Taking Immunizations Vaccine Route Administration Date Status Comme nts COVID Unknown 06/21/2020 Administered COVID Unknown 07/12/2020 Administered Social History Tobacco Use: Social History Observation Description Date Details (start date - stop date) Never Smoker NA - NA Tobacco Use/Smoking Question Answer Notes Are you a nonsmoker Alcohol Screen (Audit-C) Question Answer Notes Did you have a drink containing alcohol in the p ast year? No Points 0 Interpretation Negative Problems Problem Type SNOMED Code ICD Code Onset Dates Problem Status W/U Status Risk Notes Problem Moderate recurrent major depression (42153664) Major depressive disorder, recurrent, moderate (F33.1) Active confirmed Problem Essential tremor (481120712) Essential tremor (G25.0) Active confirmed Problem Hearing loss (16767291) Unspecified hearing loss, unspecified ear (H91.90) Active confirmed Problem Bilateral tinnitus (9576805676234) Tinnitus, bilateral (H93.13) Active confirmed Problem Carotid artery occlusion (760101816) Occlusion and stenosis of unspecified carotid artery (I65.29) Active confirmed Problem Gastro-esophageal reflux disease without esophagitis (498290513) Gastro-esophagea l reflux disease without esophagitis (K21.9) Active confirmed Problem Osteoarthritis (240779445) Polyosteoarthrit is, unspecified (M15.9) Active confirmed Problem Pes planus (46172509) Flat foot [pes planus] (acquired), unspecified foot (M21.40) Active confirmed Problem Hydrocele (765239208) Hydrocele, unspecified (N43.3) Active confirmed Problem Cardiac murmur, unspecified (R01.1) Active confirmed Problem Edema (97635653) Edema, unspecified (R60.9) Active confirmed Problem Pre-procedure evaluation check (986314724) Encounter for other preprocedural examination (Z01.818) Active confirmed Encounters Encounter Location Date Provider Diagnosis [address] [address] 07/15/2023 SERJIO TAPIA [address] [address] 07/18/2023 SERJIO TAPIA Plan Of Treatment Pending Test Test Name Order Date X ray : Shoulder, right 08/16/2019 X ray : Knee, right 2 views 02/15/2019 COMPREHENSIVE METABOLIC PANEL 11/08/2022 HEMOGLOBIN A1C 11/08/2022 LIPID PANEL 11/08/2022 MICROALBUMIN, URINE 11/08/2022 PSA, SCREEN 11/08/2022 Future Test Test Name Order Date COMPREHENSIVE METABOLIC PANEL 01/14/2023 LIPID PANEL 01/14/2023 PSA, SCREEN 01/14/2023 Insurance Providers Payer Name Payer Address Payer Phone Subscriber Number Group Number Insured Name Patient Relationship to Insured Coverage Start Date Coverage End Date Adela MARRERO [id number] [phone] [id number] Frank Mock Self - patient is the insured Medical (General) History Medical History History ICD Code glaucoma acid reflux Mild hearing loss Osteoarthritis Class II obesity Anxiety disorder depression Surgical History Surgery Date(Month/Year) appendectomy carpal tunnel release cataract removal hernia repair abscess right kidney rectal polyp benign macula wrinkle surgery rectal growth enlarged left toes hydrocele repair 08/13/2019 cataract-lens implants bilateral Hospitalization History Reason Date(Month/Year)
--- OUTSIDE RECORDS SUMMARY | 2024-05-22 11:49 | XMS_ITS ---
Author Organization [facility] Address [address] [facility] [address] [place] [address] Care Team Providers Care Machined Parts Quality Inspector Name Role Phone SERJIO TAPIA Primary Care Provider REASON FOR VISIT refill escitalopram Medications Medication SIG (Take, Route, Frequency, Duration) Notes Start Date End Date Status Escitalopram Oxalate 20 MG 1 tab once da brock Orally Once a day for 30 days Active Encounters Encounter Location Date Provider Diagnosis [facility] [address] [facility] [address] [place] [address] 07/15/2023 SERJIO TAPIA Plan Of Treatment Medication Medication Name Sig Start Date Stop Date Notes Escitalopram Oxalate 20 MG 1 tab once da brock Orally Once a day for 30 days Progress Notes * Frank HILLDOB:1945 ([age] yo M)Acc No.[id number]:07/15/2023 Patient:?LIZFrank :1945???Age:78 Y???Sex:Male Address:[address], [address], [place] [address] * Refills? Refill Escitalopram Oxalate Tablet, 20 MG, Orally, 30 Tablet, 1 tab once daily, Once a day, 30 days, Refills=5 * true * Date:? Generated for Chioi carmen/Kurt/eTransmitting on:?05/22/2024 11:48 AM EST
[2024-05-22 13:10] LABS: PSA,Total (Free>4and<10) 1.06 ng/mL (0.00-4.00)
== END 2024-05-22 11:39 | disposition home or self-care (01) ==
LOC: HO.10HDL 11:38
PROVIDERS: Visit Provider Urology
DX: Z12.5 Encounter for screening for malignant neoplasm of prostate (principal); R97.20 Elevated prostate specific antigen [PSA]
CPT/HCPCS: 36415; 84153

== ENCOUNTER 2024-05-29 10:13 | Outpatient (AMB) | payer OTHER, SELFPAY ==
--- NOTE | 2024-05-29 10:13 | A.OFFVIS_ITS ---
Intake Visit Reasons: PSA/med review(set) Intake Note: Patient is present for PSA/MED REVIEW Urology Medication:TADALAFIL Antibiotic Allergy:PENICILLINS Blood Thinner:NONE Salesman/Owner Required: No Allergies penicillin G Allergy (Intermediate, Verified 05/29/24 10:14) Itching Penicillins [PENICILLINS] Allergy (Intermediate, Verified 05/29/24 10:14) Itching FLURACINE DYE Allergy (Intermediate, Uncoded 05/29/24 10:14) HIVES,SWELLING HPI Comments Details: Frank is a pleasant male. He is a patient of Dr. Rausch. He is seen for the following urologic conditions - lower urinary tract symptoms - recurrent UTI - erectile dysfunction Telemedicine Evaluation 15 min Consultation Legal [employer] Effie Video Follow-up for erectile oral medications Has had some bladder instability with occasional leakage Will try daily tadalafil to address the issue Otherwise feels he is emptying his bladder GreenLight laser December 2023 Markedly enlarged prostate - multiple small bladder diverticula. Marked enlargement of the prostate gland measuring 10.0 x 7.1 x 6.7 cm for a volume of 252 mL Urinary tract infection 08/24/2023 Proteus Macrobid resistant, treated with Levaquin Lower urinary tract symptoms Here for review of lower urinary tract symptoms Currently with effective bladder emptying - nocturia x2 Current BPH therapy finasteride Prior therapy - tamsulosin PSA 03/25 3.0 brother has prostate cancer was treated, 04/26 2.3, 04/27 4.0, 09/26 1.4, 05/29 1.1 Testicular/Scotal orchalgia-swelling: Hydrocelectomy August 2019 [facility] Medical History (Updated 05/29/24 @ 10:32 by Timothy Alvarez MD) BPH (benign prostatic hyperplasia) Epididymitis Other hydrocele Orchitis Chronic prostatitis Surgical History (Updated 01/02/24 @ 06:17 by Micki Kahn RN) History of kidney surgery H/O eye surgery H/O cataract extraction History of testicular surgery Social History Patient Tobacco Use Status: Never used Tobacco Advance Directives Date on File: 03/19/20 Review of Systems Const All systems reviewed & are unremarkable except as noted in HPI and below Reports no additional complaints Resp Reports no additional complaints GI Reports no additional complaints Reports as per HPI Musc Reports no additional complaints Physical Exam Telemedicine evaluation Appropriate responses Regular breathing rate and rhythm HEENT Head: Yes normal to inspection Ears: hearing grossly normal bilaterally Eyes General: appearance normal, both eyes and all related structures Neck Neck: Yes normal visual inspection Chest Chest palpation & inspection: normal inspection of the chest Resp Effort & Inspection: normal respiratory effort and able to speak in complete sentences Telehealth Telehealth Telehealth Platform: Legal Shine Location of provider rendering services: practice address Location of patient: address on file Patient Identification confirmed using: Name, : Yes Telehealth method: video Patient verbally consented to treatment: Yes Patient verbally consented to billing insurance company: Yes Patient informed of any privacy concerns related to visit: Yes Minutes spent on Phone/Video with Pt.: 15 Assessment & Plan Assessment & Plan (1) BPH loc w urin obs/LUTS: Code(s): N40.1 - Benign prostatic hyperplasia with lower urinary tract symptoms Category: Medical (2) Bladder instability: Code(s): N32.89 - Other specified disorders of bladder Category: Medical Plan Six-month follow-up Trial tadalafil [facility]ations: [facility] [address] [id number] 5 mg PO DAILY 90 days 90 tabs 1RF sexual activity N32.89 - Other specified disorders of bladder Discontinued finasteride Discontinued Reason: Patient Completed Course 5 mg PO DAILY 90 days 90 tabs 1RF N13.8 - Other obstructive and reflux uropathy, N40.1 - Benign prostatic hyperplasia with lower urinary tract symptoms, R33.9 - Retention of urine, unspecified, R97.20 - Elevated prostate specific antigen [PSA] Patient Instructions: Imaging studies, laboratory and physical exam results were discussed and reviewed in detail. No major barriers to patient understanding were identified. An opportunity to ask questions regarding the treatment plan was provided. All questions were answered. The patient expressed understanding and agreement with the above treatment plan. The patient is aware they should contact our office by phone for worsening of their current condition or the appearance of new urologic symptoms. Compliance is encouraged with any medications and followup testing that is ordered. It is a privilege to participate in the urologic care of your patient. If you have any questions or concerns regarding treatment for the above conditions, or other urologic issues, please do not hesitate to contact me. The office telephone contact is [phone]. This note is constructed using voice recognition software. While every effort has been made to ensure accuracy collections associate errors may have been included. Yours sincerely, Dr Timothy Alvarez MD, [facility] - Urology Providers of Expert, Compassionate Care for the Genitourinary System Coding Level of Care Code Tele Est Pt Level 4 (13458) Diagnoses BPH loc w urin obs/LUTS N40.1 Bladder instability N32.89
--- OUTSIDE RECORDS SUMMARY | 2024-05-29 10:18 | XMS_ITS ---
Author Organization [facility] Address [address] [facility] [address] [place] [address] Care Team Providers Care Explosive Technician Name Role Phone SERJIO TAPIA Primary Care Provider REASON FOR VISIT refill of escitalopram Medications Medication SIG (Take, Route, Frequency, Duration) Notes Start Date End Date Status Escitalopram Oxalate 20 MG TAKE 1 TABLET BY MOUTH EVERY DAY for 90 days Active Encounters Encounter Location Date Provider Diagnosis [facility] [address] [facility] [address] [place] [address] 07/18/2023 SERJIO TAPIA Plan Of Treatment Medication Medication Name Sig Start Date Stop Date Notes Escitalopram Oxalate 20 MG TAKE 1 TABLET BY MOUTH EVERY DAY for 90 days Progress Notes * Manda HILL:1945 ([age] yo M)Acc No.[id number]:07/18/2023 Patient:?LIZFrank :1945???Age:78 Y???Sex:Male Address:[address], [place] [address] * Refills? Refill Escitalopram Oxalate Tablet, 20 MG, 90 Tablet, TAKE 1 TABLET BY MOUTH EVERY DAY, 90 days, Refills=3 * true * Date:? Generated for Bronson morales/Kurt/eTransmitting on:?05/29/2024 10:17 AM EST
--- OUTSIDE RECORDS SUMMARY | 2024-05-29 10:18 | XMS_ITS ---
Author Organization [facility] Address [address] [address] Care Team Providers Care Hoe Worker Name Role Phone SERJIO TAPIA Primary Care Provider REASON FOR VISIT 2 month fu Encounters Encounter Location Date Provider Diagnosis [facility] [address] [facility] [address] [place] [address] 03/22/2023 SERJIO TAPIA Plan Of Treatment No Information Progress Notes * RUSLANFrank KAURDOB:1945 ([age] yo M)Acc No.[id number]:03/22/2023 Progress Notes Patient:?Frank HILL Provider:?SERJIO TAPIA MD :1945???Age:78 Y???Sex:Male Jaime e:03/22/2023 Address:[address], [address], [place], [id number] Subjective: * Chief Complaints: * ???1. 2 month fu. * Medical History:? Objective: * Vitals:? Assessment: Plan: * Treatment: * * Electronic signature of ANABEL TAPIA MD on 05/29/2024 at 10:18 AM EST Sign off status: Pending * Provider:?SERJIO TAPIA MD Date:?03/22 Generated for Bronson morales/Kurt/eTransmitting on:?05/29/2024 10:18 AM EST
--- OUTSIDE RECORDS SUMMARY | 2024-05-29 10:18 | XMS_ITS ---
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 Name Role Phone SERJIO TAPIA Primary Care Provider [phone] REASON FOR VISIT refill escitalopram Medications Medication SIG (Take, Route, Frequency, Duration) Notes Start Date End Date Status Escitalopram Oxalate 20 MG 1 tab once da brock Orally Once a day for 30 days Active Encounters Encounter Location Date Provider Diagnosis [facility] [address] [facility] [address] [place] [address] 07/15/2023 SERJIO TAPIA Plan Of Treatment Medication Medication Name Sig Start Date Stop Date Notes Escitalopram Oxalate 20 MG 1 tab once da brock Orally Once a day for 30 days Progress Notes * Frank HILLDOB:1945 ([age] yo M)Acc No.[id number]:07/15/2023 Patient:?LIZFrank :1945???Age:78 Y???Sex:Male Address:[address], [place] [address] * Refills? Refill Escitalopram Oxalate Tablet, 20 MG, Orally, 30 Tablet, 1 tab once daily, Once a day, 30 days, Refills=5 * true * Date:? Generated for Chioi carmen/Kurt/eTransmitting on:?05/29/2024 10:18 AM EST
--- OUTSIDE RECORDS SUMMARY | 2024-05-29 10:18 | XMS_ITS | Patient Health Record ---
Author Organization [facility] Address [address] [facility] [address] [place] [address] Care Team Providers Care Safety Consultant Name Role Phone SERJIO TAPIA Primary Care Provider [phone] Allergies Allergen (clinical drug ingredient) Drug/Non Drug [...] Risk Notes Problem Moderate recurrent major depression (25422528) Major depressive disorder, recurrent, moderate (F33.1) Active confirmed Problem Essential tremor (645317373) Essential tremor (G25.0) Active confirmed Problem Hearing loss (33892439) Unspecified hearing loss, unspecified ear (H91.90) Active confirmed Problem Bilateral tinnitus (1646362406681) Tinnitus, bilateral (H93.13) Active confirmed Problem Carotid artery occlusion (168449518) Occlusion and stenosis of unspecified carotid artery (I65.29) Active confirmed Problem Gastro-esophageal reflux disease without esophagitis (057468226) Gastro-esophagea l reflux disease without esophagitis (K21.9) Active confirmed Problem Osteoarthritis (842078332) Polyosteoarthrit is, unspecified (M15.9) Active confirmed Problem Pes planus (24113465) Flat foot [pes planus] (acquired), unspecified foot (M21.40) Active confirmed Problem Hydrocele (513599211) Hydrocele, unspecified (N43.3) Active confirmed Problem Cardiac murmur, unspecified (R01.1) Active confirmed Problem Edema (12122118) Edema, unspecified (R60.9) Active confirmed Problem Pre-procedure evaluation check (953365850) Encounter for other preprocedural examination (Z01.818) Active confirmed Encounters Encounter Location Date Provider Diagnosis [address] [address] 07/15/2023 SERJIO TAPIA [address] [address] 07/18/2023 SERJIO TAPIA Plan Of Treatment Pending [...] End Date Adela MARRERO [address] [phone] [id number] Frank Mock Self - patient is [...]
== END 2024-05-29 10:40 | disposition home or self-care (01) ==
LOC: HO.HUSH 10:13
PROVIDERS: PCP Hospitalist; Visit Provider Urology
DX: N40.1 Benign prostatic hyperplasia with lower urinary tract symptoms (principal); N32.89 Other specified disorders of bladder
CPT/HCPCS: 99214